=== PATIENT | male | born 1980 | race Native Hawaiian/Other Pacific Islander ===

== ENCOUNTER 2017-08-20 01:19 | Emergency (ER) | payer OTHER ==
[~2017-08-20] VITALS: Ht 177.8 cm; Wt 95.3 kg
--- NOTE | 2017-08-20 01:44 | NUR ---
Pt c/o fever and nausea x 24 hours and upper, midline ABD pain/tenderness. Pt denies CP, SOB, dizziness, no other complaints, no distress noted. Urine sample obtained and taken to lab.
[2017-08-20] MEDS ORDERED: METOCLOPRAMIDE HCL 10 MG/2 ML VIAL ONE (02:07)
[2017-08-20] MEDS ORDERED: KETOROLAC TROMETHAMINE 30 MG INJ ONE (02:08)
[2017-08-20] MEDS ORDERED: KETOROLAC TROMETHAMINE 30 MG INJ IVP ONE (02:15)
[2017-08-20] MEDS ORDERED: METOCLOPRAMIDE HCL 10 MG/2 ML VIAL IV ONE (02:15)
[2017-08-20] MEDS ORDERED: IV NORMAL SALINE 1000 ML BAG IV ONE (02:15)
[2017-08-20 02:18] LABS: BASOPHILS % (AUTO) 0.2 % (0.0-2.0); EOSINOPHILS % (AUTO) 0.1 % (0.0-7.0); HEMATOCRIT 43.6 % (36.7-47.1); HEMOGLOBIN 15.2 g/dL (12.5-16.3); LYMPHOCYTES % (AUTO) 8.3 % (20.5-51.5); MEAN CORPUSCULAR HEMOGLOBIN 30.6 uug (23.8-33.4); MEAN CORPUSCULAR HGB CONC 35 g/dL (32.5-36.3); MEAN CORPUSCULAR VOLUME 87.5 fL (73.0-96.2); MONOCYTES # (AUTO) 0.6 K/uL (2.0-10.0); NEUTROPHILS # (AUTO) 10.1 K/uL (1.8-8.9); NEUTROPHILS % (AUTO) 86.4 % (38.5-71.5); PLATELET COUNT (AUTO) 212 K/uL (152-348); RED BLOOD CELL COUNT(AUTO) 4.98 MIL/uL (4.06-5.63); WHITE BLOOD COUNT (AUTO) 11.7 K/uL (3.6-10.2)
--- NOTE | 2017-08-20 02:28 | NUR ---
Patient anxious and want to go home. Dr Garza made aware
[2017-08-20] MEDS ORDERED: BENZTROPINE MESYLATE 2 MG/2 ML AMPUL ONE (02:30)
[2017-08-20] MEDS ORDERED: BENZTROPINE MESYLATE 2 MG/2 ML AMPUL IM ONE (02:30)
[2017-08-20 02:31] LABS: BILIRUBIN,DIRECT 0.2 mg/dL (0.0-0.2); BILIRUBIN,TOTAL 0.8 mg/dL (0.2-1.0); CREATININE 1.1 mg/dL (0.6-1.3); POTASSIUM 3.3 mmol/L (3.5-5.1); TOTAL PROTEIN, SERUM 7.1 g/dL (6.4-8.2)
--- NOTE | 2017-08-20 03:15 | NUR ---
Patient discharged to home in stable conditon. Written and verbal after care instructions given. Patient verbalizes understanding of instructions. Patient ambulated out of ER with steady gait, VSS, no acute symptoms of distress, all belongings taken.
[2017-08-20 03:17] VITALS: BP 112/76
== END 2017-08-20 03:18 | disposition home or self-care (01) ==
LOC: ER 01:25
DX: I88.9 Nonspecific lymphadenitis, unspecified (principal)
CPT/HCPCS: 36415; 70030-TC; 85025; 86403; 87070; 87400; A4663; J0515; J1885; J2765; J7030

== ENCOUNTER 2019-06-11 06:09 | Emergency (ER) | payer OTHER ==
[~2019-06-11] VITALS: Ht 177.8 cm; Wt 95.3 kg
[2019-06-11] MEDS ORDERED: AZIT250T PO (06:17)
[2019-06-11] MEDS ORDERED: PROM6.256 PO (06:17)
--- NOTE | 2019-06-11 06:31 | NUR ---
Dr. Perla at bedside for MSE.
[2019-06-11] MEDS ORDERED: CEFTRIAXONE 1 G VIAL ONE (06:42)
[2019-06-11] MEDS ORDERED: IV NORMAL SALINE 1000 ML BAG IV ONE (06:45)
[2019-06-11] MEDS ORDERED: CEFTRIAXONE 2 G in IV DEXTROSE 5% 100 ML IV ONE (06:45)
--- NOTE | 2019-06-11 06:45 | NUR ---
Xray at bedside.
--- NOTE | 2019-06-11 06:56 | NUR ---
Report given to Zully COE dayshift.
[2019-06-11] MEDS ORDERED: ACETAMINOPHEN 325 MG TABLET PO ONE (07:00)
--- NOTE | 2019-06-11 07:00 | NUR ---
KARTHIK muñoz to finish approximately [id number], endorsed to SARAVANAN Andrea.
[2019-06-11] MEDS ORDERED: ACETAMINOPHEN ES 500 MG TABLET ONE (07:45)
[2019-06-11] MEDS ORDERED: ONDANSETRON ODT 4 MG TAB.RAPDIS ONE (08:00)
--- NOTE | 2019-06-11 08:04 | NUR ---
Patient discharged to home in stable conditon. Written and verbal after care instructions given. Patient verbalizes understanding of instructions.pt says feels better. pt walks in steady gait.
[2019-06-11 08:05] VITALS: BP 111/71
[2019-06-11] MEDS ORDERED: ONDANSETRON ODT 4 MG TAB.RAPDIS SL ONE (08:15)
== END 2019-06-11 08:06 | disposition home or self-care (01) ==
LOC: ER 06:14
DX: J06.9 Acute upper respiratory infection, unspecified (principal); Z79.2 Long term (current) use of antibiotics; Z79.899 Other long term (current) drug therapy
CPT/HCPCS: 71045; 96365; 99283; J0696; A4663; A9150; J7030; Q0162